=== PATIENT | female | born 1990 | race Caucasian/White ===

== ENCOUNTER 2019-10-17 12:26 | Observation (INO) ==
[2019-10-17 12:04] LABS: Basophils % 0.2 %; Eosinophils # 0.1 K/mcL (0.0-0.6); Eosinophils % 0.8 %; Hemoglobin 11.9 g/dL (11.5-15.4); Lymphocytes # 2.2 K/mcL (0.6-4.6); Lymphocytes % 21.1 %; Mean Corpuscular Hemoglobin 33.4 pg (28.0-33.3); Mean Corpuscular Volume 95.5 fL (83.0-100.0); Mean Platelet Volume 9.5 fL (9.4-12.4); Monocytes # 0.5 K/mcL (0.0-1.3); Neutrophils # 7.4 K/mcL (1.6-8.9); Platelet Count 146 K/mcL (140-400); Red Blood Count 3.56 M/mcL (3.82-4.97); Red Cell Distribution Width 13.2 % (11.5-14.5); Segmented Neutrophils % 71.9 %; White Blood Count 10.3 K/mcL (4.3-11.1)
[2019-10-17 12:30] LABS: Amphetamine Screen,Urine Negative ng/mL (Cutoff=1000); Barbiturate Screen,Urine Negative ng/mL (Cutoff=200); Benzodiazepines Screen,Urine Negative ng/mL (Cutoff=200); Cannabinoid Screen,Urine Negative ng/mL (Cutoff = 50); Cocaine Screen,Urine Negative ng/mL (Cutoff= 300); Opiate Screen,Urine Negative ng/mL (Cutoff=300); Phencyclidine Screen,Urine Negative ng/mL (Cutoff=25)
[2019-10-17 12:31] LABS: Protein/Creatinine Ratio,Urine 0.49 mg/mg (0.00-0.20)
[2019-10-17 12:38] LABS: Alanine Aminotransferase 7 Units/L (7-52); Aspartate Amino Transferase 8 Units/L (13-39); BUN/Creatinine Ratio 9 (6-26); Blood Urea Nitrogen 5 mg/dL (6-20); Lactate Dehydrogenase 117 Units/L (140-271); eGFR For African Americans > 60 (> 60); eGFR For Non-African Americans > 60 (> 60)
== END 2019-10-17 16:03 | disposition home or self-care (01) ==
LOC: 1NENULAB
PROVIDERS: ADMIT Registered Nurse; ATTEND Registered Nurse

== ENCOUNTER 2020-01-20 07:50 | Inpatient (IN) ==
[2020-01-20] MEDS ORDERED: Metoclopramide 10 MG/2 ML VIAL IVP ONE (08:33)
[2020-01-20] MEDS ORDERED: CeFAZolin Syr 3,000MG/30 ML 3,000 MG/30 ML SYRINGE IVPB ONE (08:33)
[2020-01-20] MEDS ORDERED: Oxytocin 20 units/ LR 1000 mL 20 UNIT/1,000 ML BAG IVC ONE (08:33)
[2020-01-20] MEDS ORDERED: Famotidine 20 MG/2 ML VIAL IVP ONE (08:33)
[2020-01-20] MEDS ORDERED: Ringers Solution, Lactated 1,000 ML ONE ×2 (08:36→09:11)
[2020-01-20] MEDS ORDERED: Oxytocin 20 units/ LR 1000 mL 20 UNIT/1,000 ML BAG IVC SCH ×2 (08:45→13:23)
[2020-01-20] MEDS ORDERED: Ringers Solution, Lactated 1,000 ML IVC SCH (08:45)
[2020-01-20] MEDS ORDERED: Acetaminophen IV 1,000 MG/100 ML INFUS..BTL ONE (09:11)
[2020-01-20] MEDS ORDERED: *HR* Oxytocin 10 UNIT/ML VIAL IM ONE (09:12)
[2020-01-20] MEDS ORDERED: Ketorolac 30 MG/ML VIAL ONE (09:12)
[2020-01-20] MEDS ORDERED: Dexamethasone 4 MG/ML VIAL ONE (09:13)
[2020-01-20] MEDS ORDERED: EPINEPHrine 1 MG/ML VIAL ONE (09:13)
[2020-01-20] MEDS ORDERED: Ondansetron 4 MG/2 ML VIAL ONE (09:13)
[2020-01-20] MEDS ORDERED: *HR* Morphine Sulfate/PF 10 MG/10 ML AMPUL ONE (09:15)
[2020-01-20] MEDS ORDERED: *HR* FentaNYL (PF) 100 MCG/2 ML VIAL ONE (09:15)
[2020-01-20] MEDS ORDERED: *HR* Midazolam HCl 2 MG/2 ML VIAL ONE (09:15)
[2020-01-20] MEDS ORDERED: EPHEDrine 50 MG/ML VIAL ONE (09:17)
[2020-01-20 09:21] LABS: Amphetamine Screen,Urine Negative ng/mL (Cutoff=1000); Barbiturate Screen,Urine Negative ng/mL (Cutoff=200); Benzodiazepines Screen,Urine Negative ng/mL (Cutoff=200); Cannabinoid Screen,Urine Negative ng/mL (Cutoff = 50); Cocaine Screen,Urine Negative ng/mL (Cutoff= 300); Opiate Screen,Urine Negative ng/mL (Cutoff=300); Phencyclidine Screen,Urine Negative ng/mL (Cutoff=25)
[2020-01-20] MEDS: Ringers Solution, Lactated 1,000 ML IVC ONE (09:25)
[2020-01-20 09:35] LABS: Basophils % 0.4 %; Eosinophils # 0.1 K/mcL (0.0-0.6); Eosinophils % 0.7 %; Hematocrit 39.3 % (35.3-44.9); Lymphocytes # 2.4 K/mcL (0.6-4.6); Lymphocytes % 22.2 %; Mean Corpuscular Hemoglobin 32.6 pg (28.0-33.3); Mean Corpuscular Volume 98.5 fL (83.0-100.0); Monocytes # 0.6 K/mcL (0.0-1.3); Monocytes % 5.8 %; Neutrophils # 7.6 K/mcL (1.6-8.9); Platelet Count 128 K/mcL (140-400); Red Blood Count 3.99 M/mcL (3.82-4.97); Red Cell Distribution Width 13.7 % (11.5-14.5); Segmented Neutrophils % 69.9 %; White Blood Count 10.9 K/mcL (4.3-11.1)
[2020-01-20 09:38] LABS: Mean Corpuscular HGB Conc 33.1 g/dL (31.6-35.5)
[2020-01-20] MEDS ORDERED: Metoclopramide 10 MG/2 ML VIAL IVP PRN (13:23)
[2020-01-20] MEDS ORDERED: Sennosides 8.6 MG TABLET PO PRN (13:23)
[2020-01-20] MEDS ORDERED: Simethicone 80 MG TAB.CHEW PO PRN (13:23)
[2020-01-20] MEDS ORDERED: Ondansetron 4 MG/2 ML VIAL IVP PRN (13:23)
[2020-01-20] MEDS ORDERED: *HR* OxyCODONE/APAP 5/325 TABLET PO PRN (13:23)
[2020-01-20] MEDS: metroNIDAZOLE 500 MG TABLET PO SCH ×2 (15:26→21:24)
[2020-01-20] MEDS: ceFAZolin 2,000 MG in 0.9 % Sodium Chloride 100 ML IVPB SCH (17:56)
[2020-01-20] MEDS: Ibuprofen 600 MG TABLET PO PRN (21:25)
[2020-01-21] MEDS: Ibuprofen 600 MG TABLET PO PRN (03:51)
[2020-01-21 04:41] LABS: Basophils % 0.3 %; Eosinophils % 0.1 %; Hematocrit 32.4 % (35.3-44.9); Immature Granulocytes % 0.6 % (0-4); Lymphocytes # 2.6 K/mcL (0.6-4.6); Lymphocytes % 18.2 %; Mean Corpuscular HGB Conc 34.3 g/dL (31.6-35.5); Mean Corpuscular Hemoglobin 34.6 pg (28.0-33.3); Mean Corpuscular Volume 100.9 fL (83.0-100.0); Mean Platelet Volume 10.2 fL (9.4-12.4); Monocytes # 0.8 K/mcL (0.0-1.3); Monocytes % 5.2 %; Neutrophils # 10.8 K/mcL (1.6-8.9); Platelet Count 141 K/mcL (140-400); Red Blood Count 3.21 M/mcL (3.82-4.97); Red Cell Distribution Width 13.6 % (11.5-14.5); Segmented Neutrophils % 75.6 %; White Blood Count 14.3 K/mcL (4.3-11.1)
[2020-01-21 04:45] LABS: Hemoglobin 11.1 g/dL (11.5-15.4)
[2020-01-21] MEDS: ceFAZolin 2,000 MG in 0.9 % Sodium Chloride 100 ML IVPB SCH ×2 (08:10)
[2020-01-21] MEDS: metroNIDAZOLE 500 MG TABLET PO SCH (08:11)
[2020-01-21 08:21] VITALS: BP 107/53
[2020-01-21] MEDS ORDERED: Prenatal Vit/FA 1 EACH TABLET PO SCH (09:00)
== END 2020-01-21 12:25 | disposition home or self-care (01) ==
LOC: 1NENULAB 07:50 → 1NENUOBS 13:19
PROVIDERS: ADMIT Obstetrics & Gynecology; ATTEND Obstetrics & Gynecology